=== PATIENT | male | born 1965 | race Caucasian/White ===

== ENCOUNTER → 2016-12-01 | Outpatient (CLI) | payer OTHER | LOC: BMCIMAGING 11:13 | PROVIDERS: ATTEND Nurse Practitioner Adult Health | DX: R05 Cough (principal); R91.8 Other nonspecific abnormal finding of lung field ==

== ENCOUNTER → 2016-12-19 | Outpatient (CLI) | payer OTHER | LOC: BMCIMAGING 08:14 | PROVIDERS: ATTEND Nurse Practitioner Adult Health | DX: R05 Cough (principal) ==

== ENCOUNTER → 2017-01-08 | Outpatient (CLI) | payer OTHER | LOC: BMCIMAGING 12:09 | PROVIDERS: ATTEND Internal Medicine Rheumatology | DX: M79.642 Pain in left hand (principal); M79.641 Pain in right hand ==